=== PATIENT | male | born 1935 | race Caucasian/White ===

== ENCOUNTER 2017-07-11 11:12 | Day surgery (SDC) | payer BC ==
[~2017-07-11] VITALS: Ht 188 cm; Wt 64.4 kg
[2017-07-11] VITALS (7 sets, daily range): BP systolic 115–130; BP diastolic 56–60
[~2017-07-11 11:12] MED LIST: ASPIR 8181 MG ORAL; AZOPT10 ML OP; BSS 15ml BTL ONE; BSS 500ml btl ONE; Bupivacaine 0.75% 30ml vial INJ ONE; Dexamethasone 4mg/ml vial ONE; EPINEPHrine 1mg/1ml Amp ONE; Fluorescein Strips ONE; GLUCOPHAGE500 MG ORAL; Lidocaine 2% 20mg/ml/EPI 0.01mg/ml 20ml ONE; Maxitrol Opth Oint 3.5gm ONE; Maxitrol Opth Susp 5ml ONE; Povidone-Iodine 5% opth solution ONE; Sodium Hyaluronate 10 mg/ml 0.85ml ONE; TIMOPTIC 0.25%1 DROP BOTH EYES; Tetracaine 0.5% Opth 4ml Soln ONE
--- NOTE | 2017-07-11 12:13 | Anethesia Preoperative Eval ---
Anesthesia Pre-op PMH/ROS General Date of Evaluation: Jul 11, 2017 Anesthesiologist: Elroy ASA Score: ASA 2 Mallampati Score Class I : Soft palate, uvula, fauces, pillars visible Class II: Soft palate, uvula, fauces visible Class III: Soft palate, base of uvula visible Class IV: Only hard plate visible Mallampati Classification: Class II Surgeon: Donavon Diagnosis: Right glaucoma Surgical Procedure: Right trabeculectomy Anesthesia History: none Family History: no anesthesia problems Allergies: Coded Allergies: No Known Allergies (Unverified , 12/27/11) Medications: see eMAR Past Medical History Cardiovascular: Denies: HTN, CAD, [place], valve dz, arrhythmia, other Pulmonary: Denies: asthma, COPD, IVY, other Gastrointestinal/Genitourinary: Reports: GERD, other - BPH, Denies: CRI, ESRD Neurologic/Psychiatric: Denies: dementia, CVA, depression/anxiety, TIA, other Endocrine: Reports: DM, Denies: hypothyroidism, steroids, other HEENT: Reports: cataract (R), Denies: cataract (L), glaucoma, ATKA (L), ATKA (R), other Hematology/Immune: Denies: anemia, DVT, bleeding disorder, other Musculoskeletal/Integumentary: Reports: OA, Denies: RA, DJD, DDD, edema, other PSxH Narrative: left cataract sx, TURP Anesthesia Pre-op Phys. Exam Physician Exam see chart Constitutional: NAD Cardiovascular: RRR Respiratory: CTA Airway Exam Mallampati Score: Class II MO: full ROM: full Anesthesia Pre-op A/P Labs see chart Risk Assessment & Plan Assessment: ASA II Plan: MAC Status Change Before Surgery: No Pre-Antibiotics Drug: N/A LAM LARSON M.D. Jul 11, 2017 12:13
--- NOTE | 2017-07-11 12:30 | Pre-Procedure Note/Attestation ---
Pre-Procedure Note/Attestation Complete Prior to Procedure Planned Procedure: right Procedure Narrative: Baerveldt implant, scleral reinforcement and Trabeculectomy without Mitomycin C right eye Indications for Procedure Pre-Operative Diagnosis: Primary open angle glaucoma severe right eye Attestation I attest that I discussed the nature of the procedure; its benefits; risks and complications; and alternatives (and the risks and benefits of such alternatives ), prior to the procedure, with the patient (or the patient's legal employee relations representative). I attest that, if there was a reasonable possibility of needing a blood transfusion, the patient (or the patient's legal employee relations representative) was given the [facility] standardized written summary, pursuant to the [place] Blood Safety Act ([place] Health and Safety Code # 1645, as amended). I attest that I re-evaluated the patient just prior to the surgery and that there has been no change in the patient's H&P, except as documented below: JUS GUAMAN DO Jul 11, 2017 12:29
[2017-07-11] MEDS ORDERED: DiphenhydrAMINE 50mg/ml Inj ONE (12:37)
[2017-07-11] MEDS ORDERED: Ciprofloxacin Opth Soln 2.5ml ONE (12:38)
[2017-07-11] MEDS: Ciprofloxacin Opth Soln 2.5ml RIGHT EYE SCH ×3 (12:40→12:55)
[2017-07-11] MEDS ORDERED: LR 1000ml 1,000 ML IVLG SCH (13:16)
[2017-07-11 13:27] LABS: BASOPHILS % (AUTO) 0.8 % (0.0-2.0); EOSINOPHILS % (AUTO) 0.7 % (0.0-3.0); HEMATOCRIT 39.6 % (42.0-52.0); HEMOGLOBIN 13.1 G/DL (14.2-18.0); LYMPHOCYTES % (AUTO) 19.7 % (20.0-45.0); MEAN CORPUSCULAR VOLUME 92 FL (80-99); MONOCYTES % (AUTO) 11.3 % (1.0-10.0); NEUTROPHILS % (AUTO) 67.6 % (45.0-75.0); PLATELET COUNT 188 K/UL (150-450); RED BLOOD COUNT 4.31 M/UL (4.70-6.10); RED CELL DISTRIBUTION WIDTH 11.8 % (11.6-14.8); WHITE BLOOD COUNT 5.8 K/UL (4.8-10.8)
[2017-07-11] MEDS ORDERED: DiphenhydrAMINE 50mg/ml Inj IVP PRN (13:30)
[2017-07-11] MEDS ORDERED: Propofol 200mg/20ml IV ONE (13:45)
[2017-07-11] MEDS ORDERED: NS Irrig 1000ml ONE (13:45)
[2017-07-11] MEDS ORDERED: Lidocaine 1% MPF 10mg/ml 5ml ONE (13:45)
[2017-07-11] MEDS ORDERED: Sterile Water Irrig 1000ml IRRIG ONE (13:45)
[2017-07-11] MEDS ORDERED: LR 1000ml ONE (13:45)
--- NOTE | 2017-07-11 13:56 | Immediate Post-Op Evaluation ---
Immediate Post-Op Evalulation Immediate Post-Op Evalulation Procedure: Right eye trabeculectomy Date of Evaluation: Jul 11, 2017 Time of Evaluation: 14:37 IV Fluids: 500 Blood Products: 0 Estimated Blood Loss: 0 Urinary Output: 0 Blood Pressure Systolic: 131 Blood Pressure Diastolic: 57 Pulse Rate: 71 Respiratory Rate: 16 O2 Sat by Pulse Oximetry: 100 Temperature (Fahrenheit): 97.8 Pain Score (1-10): 0 Nausea: No Vomiting: No Complications 0 Patient Status: awake, reacts, patent, none Hydration Status: adequate Drug: N/A LAM LARSON M.D. Jul 11, 2017 13:55
--- NOTE | 2017-07-11 13:56 | 48 Hour Post Anesthesia Eval ---
Post Anesthesia Evaluation Procedure: Right eye trabeculectomy Date of Evaluation: Jul 11, 2017 Time of Evaluation: 15:25 Blood Pressure Systolic: 115 0: 59 Pulse Rate: 77 Respiratory Rate: 14 Temperature (Fahrenheit): 98 Airway: patent Nausea: No Vomiting: No Pain Intensity: 0 Hydration Status: adequate Cardiopulmonary Status: at baseline Mental Status/LOC: patient returned to baseline Post-Anesthesia Complications: 0 Follow-up care needed: ready to discharge LAM LARSON M.D. Jul 11, 2017 13:56
--- NOTE | 2017-07-11 14:04 | Brief Operative Note ---
Immediate Post Operative Note Operative Note Chief Complaint: Uncontrolled eye pressure right eye Pre-op Diagnosis: Primary open angle glaucoma severe right eye Procedure: Baerveldt implant, scleral reinforcement, and Trabeculectomy without Mitomycin C right eye Post-op Diagnosis: same as pre-op Findings: consistent w/pre-op dx studies Surgeon: Dr Raphael Anesthesia: MAC Specimen: none Complications: none Condition: stable Fluids: No Estimated Blood Loss: none Drains: none Implant(s) used?: Yes JUS RAPHAEL DO Jul 11, 2017 14:04
--- NOTE | 2017-07-11 14:05 | General Surgery Progress Note ---
General Surgery-Progress Note Subjective Day of Surgery: 07/11/17 Reason for Consult Uncontrolled eye pressure right eye Procedure Performed Baerveldt implant, scleral reinforcement, and Trabeculectomy without Mitomycin C right eye Chief Complaint: High eye pressure OD Objective Last 24 Hour Vital Signs Date Time Temp Pulse Resp B/P (MAP) Pulse Ox O2 Delivery O2 Flow Rate FiO2 07/11/17 13:10 98.0 66 18 120/60 100 Room Air 98.0 Dressing: dry Wound: clean Drains: none Respiratory: clear Laboratory Tests Test 07/11/17 13:10 White Blood Count 5.8 K/UL (4.8-10.8) Red Blood Count 4.31 M/UL (4.70-6.10) L Hemoglobin 13.1 G/DL (14.2-18.0) L Hematocrit 39.6 % (42.0-52.0) L Mean Corpuscular Volume 92 FL (80-99) Mean Corpuscular Hemoglobin 30.3 PG (27.0-31.0) Mean Corpuscular Hemoglobin Concent 33.0 G/DL (32.0-36.0) Red Cell Distribution Width 11.8 % (11.6-14.8) Platelet Count 188 K/UL (150-450) Mean Platelet Volume 7.8 FL (6.5-10.1) Neutrophils (%) (Auto) 67.6 % (45.0-75.0) Lymphocytes (%) (Auto) 19.7 % (20.0-45.0) L Monocytes (%) (Auto) 11.3 % (1.0-10.0) H Eosinophils (%) (Auto) 0.7 % (0.0-3.0) Basophils (%) (Auto) 0.8 % (0.0-2.0) Assessment Post-op Diagnosis Primary open angle glaucoma severe right eye JUS GUAMAN DO Jul 11, 2017 14:05
--- NOTE | 2017-07-11 14:07 | Discharge Instructions ---
Discharge Instructions Discharge Instructions Follow up with: Dr Raphael Diet: regular Resume Normal Activity?: No Activity: light activity Follow Up Orders See Dr Raphael the day after surgery in his office For Surgical Patients Dressing Care: keep dry and clean May shower: No Contact your physician for: yellowish discharge in the op. site For Congestive Heart Failure Reminder Report to your physician any weight gain of 5 pounds or more in one week. JUS RAPHAEL DO Jul 11, 2017 14:07
--- NOTE | 2017-07-11 23:30 | Operative Note - Dictated ---
DATE OF OPERATION: 07/11/2017 PREOPERATIVE DIAGNOSIS: Severe primary open angle glaucoma of the right eye. POSTOPERATIVE DIAGNOSIS: Severe primary open angle glaucoma of the right eye. SURGERY: 1. Trabeculectomy without mitomycin-C, right eye. 2. Aqueous shunt implant with scleral reinforcement, right eye. ANESTHESIA: Monitored anesthesia care. COMPLICATIONS: None. SPECIMENS: None. DRAINS: None. DESCRIPTION OF PROCEDURE: The patient was brought to the operating room, prepped and draped in the usual sterile manner for right eye procedure. With the aid of an operating microscope, the lid speculum was placed into the right eye. A paracentesis was created temporally. A corneal shield was placed over the eye. A 6-0 Vicryl suture was passed partial thickness through the cornea and used as a traction suture. The eye was rotated down exposing the superior temporal conjunctiva. A 10 mm posterior to the limbus, an incision was made through the conjunctiva and tenon's layer. This created a limbus based conjunctival flap. At the limbus, a 3 mm x 3 mm scleral flap was outlined and partial thickness dissection of the sclera was performed to the limbus. A stab incision was made into the anterior chamber and sclerotomy performed. The scleral flap was sutured down with one 10-0 nylon suture. This affected a trabeculectomy without mitomycin-C. Attention was then placed to the Baerveldt implant. A 350 mm squared Baerveldt implant was inspected and irrigated and after found to be in good working condition, was placed underneath the superior and lateral rectus muscles. The tube was successfully ligated with 7-0 Vicryl suture. The plate was secured to the scleral bed with 8-0 nylon suture. The distal end of the tube was sized and shaped with a bevelled edge. A 22-gauge needle was passed through the sclera temporally to the trabeculectomy site. The tube was placed through the scleral tunnel and sat in good position. The tube was secured to the scleral bed with 8-0 Vicryl suture. Process pericardium after being soaked in Ancef solution was sized and shaped and placed over the tube with four interrupted 8-0 Vicryl sutures. The tenons and conjunctiva layer were then closed in a running fashion with 8-0 Vicryl on a BV needle. The wound was inspected for leaks, there were none. Subconjunctival injections of Decadron and Ancef were given. The lid speculum was removed. A patch and shield placed over the eye. The patient delivered to the recovery room in good condition. Layton Raphael D.O. DR: CHASE JOB#: [id number] CC:
[2017-07-13 06:37] VITALS: BP 115/59
--- NOTE | 2017-07-15 15:42 | Cardiology Report ---
APPROVED REPORT EKG Measurement Heart [id number] Sinus rhythm with premature supraventricular complexes Otherwise normal ECG
== END 2017-07-11 16:00 | disposition home or self-care (01) ==
LOC: SUR 11:12
DX: H40.1113 Primary open-angle glaucoma, right eye, severe stage (principal); K21.9 Gastro-esophageal reflux disease without esophagitis; E11.9 Type 2 diabetes mellitus without complications
CPT/HCPCS: 36415; 66170; 67250; 82962; 85025; 93005; J0690; J1100; J2704; J3490; J7120; 94003; 94150